=== PATIENT | female | born 1940 | race Caucasian/White ===

== ENCOUNTER → 2017-01-15 | Outpatient (CLI) | payer MEDICARE ==
[~2017-01-15] MED LIST: ASPI81; BENI20TA25; BENI20TA3 PO; METO-309 PO; NEXI20CA; PRAV20TA67; TOPR50TA
== END ==
LOC: CLAB 09:18
PROVIDERS: ATTEND Specialist
DX: N32.81 Overactive bladder (principal)
CPT/HCPCS: 36415; 82565

== ENCOUNTER 2017-02-07 10:01 | Emergency (ER) | payer MEDICARE ==
[~2017-02-07] VITALS: Ht 160 cm; Wt 84.0 kg
[~2017-02-07 10:01] MED LIST changes: -BENI20TA3 PO; -METO-309 PO
[2017-02-07 10:05] VITALS: BP 157/71; PULSE 96; RESP 16; TEMP 98.1; O2SAT 97
[2017-02-07] MEDS ORDERED: BENI20TA3 PO (10:18)
[2017-02-07] MEDS ORDERED: METO-309 PO (10:18)
--- NOTE | 2017-02-07 10:26 | PD ---
HPI Chief Complaint: Fall Time Seen by Provider: 10:15 Travel History International Travel<30 days: No Contact w/Intl Traveler<30days: No Traveled to known affect area: No History of Present Illness HPI This 76-year-old male is complaining of pain in the left side of her pelvis. She says that last night she fell backwards. He was visiting her in his longterm when she tried to turn around quickly. She fell backwards and since then she's having pain in the left side of the back and also in the left inguinal area. She was able to get off the floor with assistance and has been able to walk with the use of a cane today. She generally does not need to use a cane. She does have some numbness of her left great toe PFS Past Medical History Heart Rhythm Problems: Yes ("BEATS FAST") Cardiac Catheterization: Yes (06/17 "NO BLOCKAGE") Diabetes: Yes Patient Takes Glucophage: No Diminished Hearing: No GERD: Yes (AND HIATAL HERNIA) Hypertension: Yes Respiratory: Yes ("BENIGN" LESION ON LUNGS 2000, SLEEP APNEA) Influenza Vaccination: Yes ?: Not Past Surgical History Abdominal Surgery: Yes (BOWEL RESECTION POST APPENDIX RUPTURE) Appendectomy: Yes Hysterectomy: Yes Social History Alcohol Use: No Tobacco Use: No Allergies-Medications (Allergen,Severity, Reaction): Coded Allergies: No Known Allergies (Verified , 02/07/17) Reported Meds & Prescriptions Reported Meds & Active Scripts Active Reported Benicar Hct (Olmesartan-Hydrochlorothiazide) 20-12.5 mg Tab 1 Tab PO DAILY Lopressor (Metoprolol Tartrate) 50 Mg Tab 25 Mg PO BID Review of Systems General / Constitutional: No: Fever, Chills Eyes: No: Diploplia, Blurred Vision HENT: No: Headaches, Vertigo Cardiovascular: No: Chest Pain or Discomfort, Palpitations Respiratory: No: Cough, Shortness of Breath Gastrointestinal: No: Nausea, Vomiting Genitourinary: No: Urgency, Frequency Musculoskeletal: Positive: Myalgias, Pain Skin: No Rash, No Itching Hematologic/Lymphatic: No: Easy Bruising Physical Exam Narrative GENERAL: Well-developed female SKIN: Focused skin assessment warm/dry. HEAD: Atraumatic. Normocephalic. EYES: Pupils equal and round. No scleral icterus. No injection or drainage. ENT: No nasal bleeding or discharge. Mucous membranes pink and moist. NECK: Trachea midline. No JVD. CARDIOVASCULAR: Regular rate and rhythm. No murmur appreciated. RESPIRATORY: No accessory muscle use. Clear to auscultation. Breath sounds equal bilaterally. GASTROINTESTINAL: Abdomen soft, non-tender, nondistended. Hepatic and splenic margins not palpable. MUSCULOSKELETAL: No obvious deformities. No clubbing. No cyanosis. No edema. There is tenderness of the left side pelvis posteriorly. There is no midline tenderness of the back. There is also some tenderness in the inguinal area. I am able to flex and rotate her hip without much discomfort. Pulses in the feet are equal NEUROLOGICAL: Awake and alert. No obvious cranial nerve deficits. Motor grossly within normal limits. Normal speech. There is good strength in plantar and dorsiflexion of the feet PSYCHIATRIC: Appropriate mood and affect; insight and judgment normal. Data Data Last Documented VS Vital Signs Date Time Temp Pulse Resp B/P Pulse Ox O2 Delivery O2 Flow Rate FiO2 02/07/17 10:05 98.1 96 16 157/71 97 Orders Pelvis, Ap Only (Routine) (02/07/17 10:21) Ct Pelvis W/O Iv Contrast (02/07/17 ) MDM Medical Decision Making Medical Screen Exam Complete: Yes Emergency Medical Condition: Yes Medical Record Reviewed: Yes Differential Diagnosis Differential includes fractured pelvis, fractured hip, Narrative Course Clinically I was suspicious of a possible fractured pelvis in the left side. He felt did not show any fracture. I did order a CT scan and this is also negative. Diagnosis Primary Impression: Contusion of pelvis Disposition: DISCHARGE HOME Condition: Stable Noe Baca MD February 07, 2017 10:26
--- NOTE | 2017-02-07 10:53 | RADHPO ---
EXAM DATE/TIME: 02/07/2017 10:29 [facility] COMPARISON: No previous studies available for comparison. INDICATIONS : Fall least night, left hip pain when standing or walking. MEDICAL HISTORY : Arthritis. SURGICAL HISTORY : None. ENCOUNTER: Initial ACUITY: 2 days PAIN SCORE: 4/10 LOCATION: Left hip FINDINGS: A single frontal view of the pelvis demonstrates no evidence of fracture. The bony pelvic ring is in tact. Bony mineralization is normal. The soft tissues are intact. CONCLUSION: Normal examination for a patient of this age. Deepak Russo MD on February 07, 2017 at 10:49 Board Certified Radiologist. This report was verified electronically.
--- NOTE | 2017-02-07 11:40 | RADHPO ---
EXAM DATE/TIME: 02/07/2017 11:09 [facility] COMPARISON: PELVIS AP ONLY, February 07, 2017, 10:29. INDICATIONS : Fall last night, left hip and groin pain, left great toe numbness. ORAL CONTRAST: No oral contrast ingested. RADIATION DOSE: 36.77 CTDIvol (mGy) MEDICAL HISTORY : Hernia, hiatal. Gastroesophageal reflux disease. Hypertension.Diabetes. SURGICAL HISTORY : Appendectomy. Hysterectomy.Bowel resection (ruptured appendix). ENCOUNTER: Initial ACUITY: 1 day PAIN SCALE: 7/10 LOCATION: Left inguinal and hip. TECHNIQUE: Volumetric scanning of the pelvis was performed. Using automated exposure control and adjustment of the mA and/or kV according to patient size, radiation dose was kept as low as reasonably achievable t o obtain optimal diagnostic quality images. FINDINGS: BOWEL/MESENTERY: Distal colonic diverticula. No abnormal dilatation, wall thickening or inflammatory change. BLADDER: There is no wall thickening or mass. RETROPERITONEUM: There is no aneurysm or lymphadenopathy. REPRODUCTIVE: Uterus surgically absent. No pelvic mass or free fluid. INGUINAL: There is no lymphadenopathy or hernia. MUSCULOSKELETAL: Within normal limits for patient age. CONCLUSION: No evidence of occult pelvic fracture Alessandro Lindsey MD on February 07, 2017 at 11:36 Board Certified Radiologist. This report was verified electronically.
[2017-02-07 11:50] VITALS: BP 136/62; PULSE 80; RESP 18; O2SAT 95
== END 2017-02-07 11:55 | disposition home or self-care (01) ==
LOC: PHED 10:01
DX: S30.0XXA Contusion of lower back and pelvis, initial encounter (principal); R20.0 Anesthesia of skin; E11.9 Type 2 diabetes mellitus without complications; K21.9 Gastro-esophageal reflux disease without esophagitis; I10 Essential (primary) hypertension; W18.30XA Fall on same level, unspecified, initial encounter; Y92.129 Unspecified place in nursing home as the place of occurrence of the external cause
CPT/HCPCS: 72170; 72192; 99284

== ENCOUNTER → 2017-04-05 | Outpatient (CLI) | payer MEDICARE ==
[~2017-04-05] MED LIST changes: -ASPI81; -BENI20TA25; +BENI20TA3 PO; +METO-309 PO; -NEXI20CA; -PRAV20TA67; -TOPR50TA
[2017-04-05 11:34] LABS: HDL CHOLESTEROL 52.7 MG/DL (40.0-60.0); INDIRECT BILIRUBIN 0.5 MG/DL (0.0-0.8); TOTAL BILIRUBIN ADULT 0.6 MG/DL (0.2-1.0)
== END ==
LOC: CLAB 10:40
PROVIDERS: ATTEND General Practice
DX: R73.01 Impaired fasting glucose (principal); E78.2 Mixed hyperlipidemia; Z79.899 Other long term (current) drug therapy
CPT/HCPCS: 36415; 80061; 80076; 82947

== ENCOUNTER → 2017-10-23 | Outpatient (CLI) | payer MEDICARE ==
[2017-10-23 09:47] LABS: BACTERIA, URINE OCC /hpf; BILIRUBIN, URINE NEG (NEG); BLOOD, URINE LARGE (NEG); GLUCOSE,URINE NEG (NEG); KETONE, URINE NEG (NEG); MUCUS URINE FEW /lpf (OCC); NITRITE,URINE NEG (NEG); PH, URINE 6.5 (5.0-8.5); SQUAMOUS EPITHELIAL CELL URINE 2 /hpf (0-5); URINE COLOR YELLOW (YELLW/STRAW); URINE LEUKOCYTE ESTERASE LARGE (NEG)
[2017-10-23 09:58] LABS: ALBUMIN 3.5 GM/DL (3.4-5.0); AST (GOT) 9 U/L (15-37); BLOOD UREA NITROGEN 18 MG/DL (7-18); CALCIUM 9.4 MG/DL (8.5-10.1); CHLORIDE 103 MEQ/L (98-107); CREATININE 0.81 MG/DL (0.50-1.00); GLOMERULAR FILTRATION RATE 69 ML/MIN (>89); GLUCOSE,FASTING 109 MG/DL (74-99); SODIUM (NA) 140 MEQ/L (136-145)
[2017-10-23 09:59] LABS: ALT (GPT) 15 U/L (10-53); CHOLESTEROL 211 MG/DL (120-200)
[2017-10-23 10:04] LABS: ALKALINE PHOSPHATASE 61 U/L (45-117); CHOLESTEROL/ HDL RATIO 4.18 RATIO; HDL CHOLESTEROL 50.4 MG/DL (40.0-60.0); LDL CHOLESTEROL 105 MG/DL (0-99); TOTAL BILIRUBIN ADULT 0.5 MG/DL (0.2-1.0); TOTAL PROTEIN 7.2 GM/DL (6.4-8.2); TRIGLYCERIDES 280 MG/DL (42-150)
[2017-10-23 16:35] LABS: HEMOGLOBIN A1C 6.1 % (4.3-6.0)
== END ==
LOC: CLAB 08:48
PROVIDERS: ATTEND General Practice
DX: E11.9 Type 2 diabetes mellitus without complications (principal); I10 Essential (primary) hypertension; E78.2 Mixed hyperlipidemia; N39.0 Urinary tract infection, site not specified; B96.20 Unspecified Escherichia coli [E. coli] as the cause of diseases classified elsewhere; Z79.899 Other long term (current) drug therapy
CPT/HCPCS: 36415; 80053; 80061; 81001; 82043; 82550; 83036; 87077; 87086; 87186